=== PATIENT | female | born 1995 | race Caucasian/White ===

== ENCOUNTER 2018-10-07 21:40 | Emergency (ER) | payer OTHER ==
[~2018-10-07] VITALS: Ht 160 cm; Wt 52.2 kg
[2018-10-07] MEDS ORDERED: TRAZODONE HCL50 MG ORAL (21:52)
[2018-10-07 22:00] VITALS: BP 132/79
[2018-10-07] MEDS ORDERED: Ketorolac 30mg Inj IV ONE (22:15)
--- NOTE | 2018-10-07 22:25 | Emergency Room Report ---
History of Present Illness General Chief Complaint: Dizziness Source: Patient Present Illness HPI Courtney is a very pleasant 23 yo female without significant medical hx who presents with headache, sore throat, lightheadedness, chills body aches for 4 days. Pain began gradually on Monday. Seen at OSH treated with steroid shot for swollen tonsils. Symptoms did improve. She feels really dry in her throat and nose. Urine appears dark in spite water or pedialyte. Does not normally has headaches. She has dull headache posterior and frontal. Headache is intermittent. No associated with movement or light/sound sensitivity. Has tried DayQuil OTC without relief. Did not receive influeza vaccine. Takes Trazodone for insomnia and anxiety. Starting new job tomorrow. 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 Last Menstrual Period: march 2017 Now: No Reviewed Nursing Documentation: PMH: Agreed; PSxH: Agreed Nursing Documentation-PMH Past Medical History: No History, Except For History Of Psychiatric Problem: Yes - anxiety, Hx Neurological Problems: Yes - amenorrhea Review of Systems Constitutional: Reports: chills, malaise; Denies: fever Eye: Reports: blurred vision ENT: Reports: throat pain, throat swelling Respiratory: Reports: cough Cardiovascular: Denies: chest pain Gastrointestinal: Denies: abdominal pain Neurological: Reports: headache, dizziness; Denies: numbness, seizure All Other Systems: negative except mentioned in HPI Physical Exam Vital Signs Date Time Temp Pulse Resp B/P (MAP) Pulse Ox O2 Delivery O2 Flow Rate FiO2 10/07/18 21:46 97.9 106 18 132/79 98 Room Air Sp02 EP Interpretation: reviewed, normal General Appearance: no apparent distress, alert, GCS 15, non-toxic Head: normocephalic, atraumatic Eyes: bilateral eye normal inspection, bilateral eye PERRL ENT: hearing grossly normal, no angioedema, normal voice, uvula midline, dry mucus membranes, pharyngeal erythema, other - no exudates Neck: normal inspection, full range of motion, supple, thyroid normal, no bony tend, supple/symm/no masses Respiratory: normal inspection, chest non-tender, lungs clear, normal breath sounds, speaking full sentences Cardiovascular #1: regular rate, rhythm, no edema, no gallop, no murmur, no rub Cardiovascular #2: 2+ dorsalis pedis (R), 2+ dorsalis pedis (L) Gastrointestinal: normal bowel sounds, non tender, soft, no mass, no organomegaly, no bruit, non-distended, no guarding, no rebound Musculoskeletal: back normal, gait/station normal, normal range of motion, non- tender, calf tenderness Neurologic: alert, oriented x3, responsive, motor strength/tone normal, sensory intact, speech normal Psychiatric: judgement/insight normal, memory normal, anxious Skin: normal color, no rash, warm/dry, well hydrated Medical Decision Making Diagnostic Impression: Primary Impression: Flu-like symptoms ER Course Courtney presents with flu like symptoms of chills, malaise, body aches, headache, sore throat lightheadedness. She felt dehydrated. She felt much better after ketorolac and IVF. I suggested rest and continued hydration. Dc'd home Labs Test 10/07/18 22:19 White Blood Count 6.4 K/UL (4.8-10.8) Red Blood Count 4.87 M/UL (4.20-5.40) Hemoglobin 14.2 G/DL (12.0-16.0) Hematocrit 41.7 % (37.0-47.0) Mean Corpuscular Volume 86 FL (80-99) Mean Corpuscular Hemoglobin 29.2 PG (27.0-31.0) Mean Corpuscular Hemoglobin Concent 34.1 G/DL (32.0-36.0) Red Cell Distribution Width 11.2 % (11.6-14.8) Platelet Count 284 K/UL (150-450) Mean Platelet Volume 6.9 FL (6.5-10.1) Neutrophils (%) (Auto) 52.4 % (45.0-75.0) Lymphocytes (%) (Auto) 33.2 % (20.0-45.0) Monocytes (%) (Auto) 9.2 % (1.0-10.0) Eosinophils (%) (Auto) 4.3 % (0.0-3.0) Basophils (%) (Auto) 0.9 % (0.0-2.0) Sodium Level 142 MMOL/L (136-145) Potassium Level 3.9 MMOL/L (3.5-5.1) Chloride Level 105 MMOL/L (98-107) Carbon Dioxide Level 29 MMOL/L (21-32) Anion Gap 8 mmol/L (5-15) Blood Urea Nitrogen 17 mg/dL (7-18) Creatinine 0.7 MG/DL (0.55-1.30) Estimat Glomerular Filtration Rate > 60 mL/min (>60) Glucose Level 108 MG/DL (74-106) Calcium Level 9.3 MG/DL (8.5-10.1) Lab Results Impression normal CBC normal BMP Last Vital Signs Date Time Temp Pulse Resp B/P (MAP) Pulse Ox O2 Delivery O2 Flow Rate FiO2 10/07/18 21:46 97.9 106 18 132/79 98 Room Air Disposition: HOME, SELF-CARE Condition: Stable Referrals: NOT CHOSEN IPA/,REFERRING (PCP) Magdalene Monroy MD Oct 07, 2018 22:25
[2018-10-07 22:35] LABS: BASOPHILS % (AUTO) 0.9 % (0.0-2.0); EOSINOPHILS % (AUTO) 4.3 % (0.0-3.0); HEMATOCRIT 41.7 % (37.0-47.0); HEMOGLOBIN 14.2 G/DL (12.0-16.0); LYMPHOCYTES % (AUTO) 33.2 % (20.0-45.0); MEAN CORPUSCULAR VOLUME 86 FL (80-99); MONOCYTES % (AUTO) 9.2 % (1.0-10.0); NEUTROPHILS % (AUTO) 52.4 % (45.0-75.0); PLATELET COUNT 284 K/UL (150-450); RED BLOOD COUNT 4.87 M/UL (4.20-5.40); RED CELL DISTRIBUTION WIDTH 11.2 % (11.6-14.8); WHITE BLOOD COUNT 6.4 K/UL (4.8-10.8)
[2018-10-07 22:48] LABS: ANION GAP 8 mmol/L (5-15); BLOOD UREA NITROGEN 17 mg/dL (7-18); CALCIUM 9.3 MG/DL (8.5-10.1); CARBON DIOXIDE 29 MMOL/L (21-32); CHLORIDE 105 MMOL/L (98-107); CREATININE 0.7 MG/DL (0.55-1.30); POTASSIUM 3.9 MMOL/L (3.5-5.1); SODIUM 142 MMOL/L (136-145)
[2018-10-07 23:15] VITALS: BP 110/83
[2018-10-07 23:16] VITALS: BP 110/83
== END 2018-10-07 23:18 | disposition home or self-care (01) ==
LOC: EMR 21:52
DX: R51 Headache (principal); R42 Dizziness and giddiness; J02.9 Acute pharyngitis, unspecified; R52 Pain, unspecified; R53.81 Other malaise; R68.83 Chills (without fever); F41.9 Anxiety disorder, unspecified
CPT/HCPCS: 36415; 80048; 85025; 96361; 96374; 99284; J1885